=== PATIENT | female | born 1955 | race Caucasian/White ===

== ENCOUNTER 2017-03-11 21:02 | Emergency (ER) | payer OTHER ==
[~2017-03-11] VITALS: Ht 152.4 cm; Wt 47.9 kg
[2017-03-12 00:50] VITALS: BP 136/57
== END 2017-03-12 00:58 | disposition home or self-care (01) ==
LOC: RME 21:02
DX: M54.5 Low back pain (principal); M79.606 Pain in leg, unspecified; G89.29 Other chronic pain; Z98.1 Arthrodesis status; F11.23 Opioid dependence with withdrawal; Z90.710 Acquired absence of both cervix and uterus; Z72.0 Tobacco use
CPT/HCPCS: 99281; 99285; J1170; J2405; J2550; Q0169; S0028